=== PATIENT | female | born 1995 | race Caucasian/White ===

== ENCOUNTER 2018-10-25 10:01 | Emergency (ER) | payer OTHER ==
--- NOTE | 2018-10-25 10:16 | EDPHY ---
H & P Stated Complaint: L side dull low back pain sudden @847 s trauma. Tylenol@910 Time Seen by Provider: 10/25/18 10:16 - Personal History Current Tetanus/Diphtheria Vaccine: Yes - Medical/Surgical History Hx Asthma: No Hx Chronic Respiratory Disease: No Hx Diabetes: No Hx Cardiac Disease: No Hx Renal Disease: No Hx Cirrhosis: No Hx Alcoholism: No Hx HIV/AIDS: No Hx Splenectomy or Spleen Trauma: No Other PMH: none - Social History Smoking Status: Never smoked Constitutional: Initial Vital Signs Heart Rate 78 10/25/18 10:10 Respiratory Rate 24 H 10/25/18 10:10 Blood Pressure 102/63 10/25/18 10:10 O2 Sat (%) 100 10/25/18 10:10 O2 Delivery Mode Room Air Allergies/Adverse Reactions: No Known Allergies Allergy (Unverified 10/25/18 10:10) Medical Decision Making ED Course/Re-evaluation: CHIEF COMPLAINT: HISTORY OF PRESENT ILLNESS: must have 4 elements: Location, Quality, Severity , Duration, Timing, Context, Modifying Factors, Associated Signs and Symptoms REVIEW OF SYSTEMS: A comprehensive 10 system review of systems is otherwise negative aside from elements mentioned in the history of present illness and medical decision making. PHYSICAL EXAM: HR, BP, O2 Sat, RR. Temp noted General Appearance: Alert, well hydrated, appropriate, and non-toxic appearing. Head: Atraumatic without scalp tenderness or obvious injury Eyes: Pupils equal, round, reactive to light and accommodation, EOMI, no trauma , no injection. Ears: Clear bilaterally, no perforation, normal landmarks Nose: Atraumatic, no rhinorrhea, clear. Throat: There is no erythema or exudates, no lesions, normal tonsils, mucus membranes moist. Neck: Supple, 2+ carotid upstroke, nontender, no lymphadenopathy. Respiratory: No retractions, no distress, no wheezes, and no accessory muscle use. Lungs are clear to auscultation bilaterally. Cardiovascular: Regular rate and rhythm, no murmurs, rubs, or gallops. Bilateral carotid, radial, dorsalis pedis, and posterior tibial pulses intact. Good capillary refill all extremities. Gastrointestinal: Abdomen is soft, nontender, non-distended, no masses, no rebound, no guarding, no peritoneal signs. Musculoskeletal: Normal active ROM of all extremities, atraumatic. Neurological: Alert, appropriate, and interactive. The patient has normal DTRs and non-focal cranial nerves, motor, sensory, and cerebellar exam. Skin: No rashes, good turgor, no nodules on palpation. Past medical history: Past surgical history: Family history: Social history: DIAGNOSTICS/PROCEDURES/CRITICAL CARE TIME: DIFFERENTIAL DIAGNOSIS: MEDICAL DECISION MAKING: Departure - Departure Condition: Fair
[2018-10-25] MEDS ORDERED: NS 1,000 ML IV ONE ×2 (10:21→13:00)
[2018-10-25] MEDS ORDERED: ONDANSETRON 4 MG/2 ML VIAL IVP ONE ×2 (10:21→13:00)
[2018-10-25] MEDS ORDERED: fentaNYL 100 MCG/2 ML INJ IVP ONE (10:21)
[2018-10-25] MEDS ORDERED: KETOROLAC 15 MG/1 ML SDV IVP ONE (10:21)
[2018-10-25] MEDS ORDERED: DIAZEPAM 5 MG TAB PO ONE ×2 (10:21→13:01)
--- NOTE | 2018-10-25 10:27 | EDPHY ---
General Time Seen by Provider: 10/25/18 10:16 Narrative: CLINICAL IMPRESSION: Left ureterolithiasis ASSESSMENT/PLAN: 22-year-old female presents to the emergency department with sudden onset left flank pain this morning associated with nausea and vomiting. No associated dysuria or gross hematuria, personal history of kidney stones or chronic urinary tract infections although there is a strong family history of kidney stones. Patient was very uncomfortable on arrival and required repeat doses of IV analgesics for pain control. Urine shows microscopic hematuria with no pyuria or bacteriuria. CT confirms a 4 mm distal ureteral stone with associated mild left hydro. No other acute findings identified. Patient does not appear to have infected urine. Creatinine mildly elevated at 1.1 with a BUN of 30 likely due to dehydration. She was given IV fluids and was able to tolerate oral analgesics with good pain control. She will be discharged with Flomax, Toradol, Valium, Percocet as well a Urology referral for follow-up. Warning signs return to ED sooner outlined and discharge. DIFFERENTIAL DX: Abdominal pain includes but not limited to urinary tract infection, ureterolithiasis, nephrolithiasis pyelonephritis, infection, ectopic , salpingitis, TOA, ovarian torsion, ovarian cyst, endometriosis, uterine fibroids, acute appendicitis, acute diverticulitis, small-bowel obstruction, constipation ED PROCEDURES: See lab and/or imaging results below ED COURSE: Patient seen by myself. Appears very uncomfortable. Kneeling on the floor vomiting in an emesis basin. Plan for IV, fluid bolus, analgesics, possible CT , urine studies 12:00pm: Patient reassessed. Was feeling better, now uncomfortable again. Hematuria noted on UA. Given persistent pain will CT. No e/o UTI. 12:50 p.m.: CT discussed with Dr. Anglin. Patient has a distal 4 mm ureterolithiasis associated with mild hydronephrosis. 1:15: PM patient reassessed. Still with mild pain but better. CT results discussed. Will plan to try oral analgesics with plan to DC home. patient motivated to go home. CHIEF COMPLAINT: Sudden onset left flank pain HPI: 22-year-old otherwise healthy female presents to the emergency department with sudden onset left flank pain beginning this morning. Patient was in her usual state of health yesterday and today before symptoms began. She has never had pain like this before. She is nauseous and vomiting. She had a lot of alcohol to drink last night. She has not had anything to eat or drink this morning. No reported fever or chills. No urinary symptoms. Patient denies . She reports no radiating pain into the abdomen or into the legs. She personally has not had kidney stones but reports a strong family history of this. She took Tylenol this morning. PAST MEDICAL HISTORY: None reported See nurse/triage notes for additional history if applicable Pertinent Past Surgical History: None reported Family History: Family history of kidney stones Social History: Otherwise healthy, student REVIEW OF SYSTEMS: All other systems negative Constitutional: No fever, no chills, positive for appetite change. Cardiovascular: No chest pain, no palpitations. Respiratory: No cough, no shortness of breath. Gastrointestinal: No abdominal pain, positive for vomiting, denies diarrhea. Genitourinary: No hematuria, dysuria, positive for sudden onset left flank pain , pelvic pain Musculoskeletal: Positive for left-sided back pain, joint swelling, joint pain , myalgias. Skin: No rashes, color change. Neurological: No headache, dizziness, weakness. PHYSICAL EXAM: General Appearance: Alert, oriented, appropriate, cooperative, appears uncomfortable, kneeling on the floor, vomiting in an emesis basin, colicky appearing discomfort, VSS tachypnea, no hypoxia. Respiratory: There are no retractions, lungs are clear to auscultation. Cardiac: Regular rate and rhythm, no murmurs or gallops. Gastrointestinal: Abdomen is soft, nontender, bowel sounds normal, no masses/ hernia, no rigidity, guarding or focal peritoneal findings. No reproducible flank or back pain. Neurological: [ Alert and oriented x 3, CN 2-12 grossly intact Skin: Warm, dry, no rashes, no nodules on palpation. Musculoskeletal: Extremities are symmetrical, full range of motion, no tenderness, deformity, swelling, or erythema. MEDICAL DECISION MAKING: Patient was seen independently. Secondary supervising physician at time of evaluation was Dr. Perez . Diagnosis: Left Ureterolithiasis. New, requires workup Summary: See Assessment and Plan for summary of ED visit Clinical lab tests: ordered / reviewed. Independent visualization of images, tracing, or specimens: Yes / No. Discussed patient with another provider: Dr Anglin Patient Progress: Improved, stable for discharge. - Diagnostics Imaging Results: Imaging Impressions Abdomen/Pelvis CT 10/25/18 11:40 Impression: 1. 4-mm distal left ureteral stone with mild obstructive uropathy with probable forniceal rupture. 2. Additional findings as above. Findings discussed with Edvin Engle PA-C on October 25, 2018 at 1249 hours. Attention: This CT examination is specifically designed to evaluate patients who are clinically suspected of having acute obstructive uropathy. This examination does not use radiographic contrast and provides only a limited evaluation of the abdomen, pelvis and retroperitoneum. If there is further clinical suspicion for pathological conditions other than obstructive uropathy, a complete CT evaluation of the abdomen and pelvis utilizing intravenous and enteric contrast should be considered. - History Smoking Status: Never smoked - Objective Vital Signs: Initial Vital Signs Heart Rate 78 10/25/18 10:10 Respiratory Rate 24 H 10/25/18 10:10 Blood Pressure 102/63 10/25/18 10:10 O2 Sat (%) 100 10/25/18 10:10 O2 Delivery Mode Room Air Allergies/Adverse Reactions: No Known Allergies Allergy (Unverified 10/25/18 10:10) Home Medications: Medication Instructions Recorded Diazepam [Valium] 5 mg PO Q8PRN PRN #10 tab 10/25/18 Ketorolac Tromethamine [Toradol 1 tab PO BID #10 tab 10/25/18 10mg tab] Tamsulosin HCl [Flomax 0.4 MG (RX)] 0.4 mg PO DAILY #7 cap 10/25/18 oxyCODONE/APAP 5/325 [Percocet 1 - 2 tab PO Q4-6PRN PRN #12 tab 10/25/18 5/325] Laboratory Results: Laboratory Results 10/25/18 10:28 10/25/18 10:28 10/25/18 10/25/18 10/25/18 11:25 11:25 10:28 WBC RBC Hgb Hct MCV MCH MCHC RDW Plt Count MPV Neut % (Auto) Lymph % (Auto) [place] % (Auto) Eos % (Auto) Baso % (Auto) Nucleat RBC Rel Count Absolute Neuts (auto) Absolute Lymphs (auto) Absolute Monos (auto) Absolute Eos (auto) Absolute Basos (auto) Absolute Nucleated RBC Immature Gran % Immature Gran # Sodium 140 mEq/L mEq/L (135-145) Potassium 3.9 mEq/L mEq/L (3.5-5.2) Chloride 105 mEq/L mEq/L (97-110) Carbon Dioxide 21 mEq/l L mEq/l (22-31) Anion Gap 14 mEq/L mEq/L (6-14) BUN 16 mg/dL mg/dL (7-23) Creatinine 1.1 mg/dL H mg/dL (0.6-1.0) Estimated GFR > 60 Glucose 134 mg/dL H mg/dL (70-100) Calcium 9.9 mg/dL mg/dL (8.5-10.4) Urine Color YELLOW Urine Appearance HAZY Urine pH 6.0 (5.0-7.5) Ur Specific [place] 1.029 (1.002-1.030) Urine Protein 1+ H (NEGATIVE) Urine Ketones 2+ H (NEGATIVE) Urine Blood 3+ H (NEGATIVE) Urine Nitrate NEGATIVE (NEGATIVE) Urine Bilirubin NEGATIVE (NEGATIVE) Urine Urobilinogen NEGATIVE EU EU (0.2-1.0) Ur Leukocyte Esterase NEGATIVE (NEGATIVE) Urine RBC 50-182 /hpf H /hpf (0-3) Urine WBC 10-15 /hpf H /hpf (0-3) Ur Epithelial Cells TRACE /lpf /lpf (NONE-1+) Urine Mucus 2+ /lpf H /lpf (NONE-1+) Urine Glucose NEGATIVE (NEGATIVE) Urine Test NEGATIVE 10/25/18 10:28 WBC 10.07 10^3/uL H 10^3/uL (3.80-9.50) RBC 5.10 10^6/uL 10^6/uL (4.18-5.33) Hgb 15.5 g/dL g/dL (12.6-16.3) Hct 46.6 % % (38.0-47.0) MCV 91.4 fL fL (81.5-99.8) MCH 30.4 pg pg (27.9-34.1) MCHC 33.3 g/dL g/dL (32.4-36.7) RDW 13.5 % % (11.5-15.2) Plt Count 251 10^3/uL 10^3/uL (150-400) MPV 11.1 fL fL (8.7-11.7) Neut % (Auto) 72.8 % % (39.3-74.2) Lymph % (Auto) 18.3 % % (15.0-45.0) [place] % (Auto) 7.2 % % (4.5-13.0) Eos % (Auto) 0.5 % L % (0.6-7.6) Baso % (Auto) 0.4 % % (0.3-1.7) Nucleat RBC Rel Count 0.2 % % (0.0-0.2) Absolute Neuts (auto) 7.33 10^3/uL H 10^3/uL (1.70-6.50) Absolute Lymphs (auto) 1.84 10^3/uL 10^3/uL (1.00-3.00) Absolute Monos (auto) 0.73 10^3/uL 10^3/uL (0.30-0.80) Absolute Eos (auto) 0.05 10^3/uL 10^3/uL (0.03-0.40) Absolute Basos (auto) 0.04 10^3/uL 10^3/uL (0.02-0.10) Absolute Nucleated RBC 0.02 10^3/uL H 10^3/uL (0-0.01) Immature Gran % 0.8 % % (0.0-1.1) Immature Gran # 0.08 10^3/uL 10^3/uL (0.00-0.10) Sodium Potassium Chloride Carbon Dioxide Anion Gap BUN Creatinine Estimated GFR Glucose Calcium Urine Color Urine Appearance Urine pH Ur Specific [place] Urine Protein Urine Ketones Urine Blood Urine Nitrate Urine Bilirubin Urine Urobilinogen Ur Leukocyte Esterase Urine RBC Urine WBC Ur Epithelial Cells Urine Mucus Urine Glucose Urine Test Medications Given: Discontinued Medications Diazepam (Valium) 2.5 mg PO EDNOW ONE Stop: 10/25/18 10:22 Last Admin: 10/25/18 10:55 Dose: 2.5 mg Diazepam (Valium) 2.5 mg PO EDNOW ONE Stop: 10/25/18 13:02 Last Admin: 10/25/18 13:21 Dose: 2.5 mg Fentanyl (Sublimaze) 50 mcg IVP EDNOW ONE Stop: 10/25/18 10:22 Last Admin: 10/25/18 10:33 Dose: 50 mcg Hydromorphone HCl (Dilaudid) 0.5 mg IVP EDNOW ONE Stop: 10/25/18 11:40 Last Admin: 10/25/18 11:45 Dose: 0.5 mg Hydromorphone HCl (Dilaudid) 0.5 mg IVP EDNOW ONE Stop: 10/25/18 12:29 Last Admin: 10/25/18 12:41 Dose: 0.5 mg Sodium Chloride (Ns) 1,000 mls @ 0 mls/hr IV EDNOW ONE; Wide Open PRN Reason: Protocol Stop: 10/25/18 10:22 Last Admin: 10/25/18 10:39 Dose: 1,000 mls Sodium Chloride (Ns) 1,000 mls @ 0 mls/hr IV EDNOW ONE; Wide Open PRN Reason: Protocol Stop: 10/25/18 13:01 Last Admin: 10/25/18 13:23 Dose: 1,000 mls Ketorolac Tromethamine (Toradol) 15 mg IVP EDNOW ONE Stop: 10/25/18 10:22 Last Admin: 10/25/18 10:37 Dose: 15 mg Ondansetron HCl (Zofran) 4 mg IVP EDNOW ONE Stop: 10/25/18 10:22 Last Admin: 10/25/18 10:35 Dose: 4 mg Ondansetron HCl (Zofran) 4 mg IVP EDNOW ONE Stop: 10/25/18 13:01 Last Admin: 10/25/18 13:24 Dose: 4 mg Oxycodone/Acetaminophen (Percocet 5/325) 2 tab PO EDNOW ONE Stop: 10/25/18 13:02 Last Admin: 10/25/18 13:27 Dose: 2 tab Departure - Departure Disposition: Home, Routine, Self-Care Clinical Impression: Ureterolithiasis Condition: Good Instructions: Ureteral Stones (ED) Additional Instructions: DISCHARGE INSTRUCTIONS FROM YOUR DOCTOR Thank you for visiting our emergency department today. You were treated by a physician multimedia assistant today and your case was reviewed with our ED Attending physician. Please keep in mind that discharge from the emergency department does not mean that there is nothing wrong - it simply means that we have not identified an emergency condition that requires further evaluation or treatment in the hospital. You should always plan to follow up with primary care for re- evaluation of your condition in the next 2-3 days. If you have been referred to a specialist, please call as soon as possible (today or tomorrow) to schedule your follow up appointment at the appropriate time. DIAGNOSTIC EVALUATION IN THE ER INCLUDED LABS, URINE STUDIES AND CT SCAN. YOU DID HAVE BLOOD IN YOUR URINE BUT NO SIGNS OF INFECTION. CT SHOWS A 4MM LEFT DISTAL URETERAL STONE. YOU SHOULD PASS THIS ON YOUR OWN. PLEASE STAY WELL HYDRATED. TAKE PAIN MEDS AND FLOMAX INDICATED. DO NOT DRIVE OR DRINK ALCOHOL WHILE TAKING NARCOTIC PAIN MEDICATION. PLEASE BE AWARE, NARCOTICS CAN CAUSE CONSTIPATION, LETHARGY, AND INCREASE YOUR RISK OF FALLING. DO NOT TAKE TYLENOL AT THE SAME TIME VICODIN OR PERCOCET. STRAIN YOUR URINE. PLEASE FOLLOWUP WITH UROLOGY, A REFERRAL WAS GIVEN. RETURN TO THE ER FOR WORSENING PAIN, INABILITY TO URINATE, FEVER GREATER THAN 100.4, CHILLS, PERSISTENT VOMITING, UNCONTROLLED PAIN OR ANY OTHER CONCERNS. People present with illnesses and injuries in different ways, and it is always possible that we have missed something. You may always return for re-evaluation if symptoms worsen or if they are not improving or if you develop new/different symptoms. Again, thank you for choosing our emergency department. We hope that you feel better. Referrals: NONE *PRIMARY CARE P,. [Primary Care Provider] - As per Instructions Dayo Hill MD [Medical Doctor] - As per Instructions Prescriptions: Diazepam [Valium] 5 mg PO Q8PRN PRN #10 tab PRN Reason: Pain, Breakthrough Ketorolac Tromethamine [Toradol 10mg tab] 1 tab PO BID #10 tab oxyCODONE/APAP 5/325 [Percocet 5/325] 1 - 2 tab PO Q4-6PRN PRN #12 tab PRN Reason: Pain, Breakthrough Tamsulosin HCl [Flomax 0.4 MG (RX)] 0.4 mg PO DAILY #7 cap
[2018-10-25 10:41] LABS: PLATELET COUNT 251 10^3/uL (150-400)
[2018-10-25] MEDS ORDERED: HYDROmorphONE/DILAUDID 2 MG/ML INJ IVP ONE ×2 (11:39→12:28)
[2018-10-25] MEDS ORDERED: OXYCODONE/APAP 5/325 TAB PO ONE (13:01)
[2018-10-25 14:56] VITALS: BP 112/75
== END 2018-10-25 14:55 | disposition home or self-care (01) ==
DX: N20.1 Calculus of ureter (principal); R10.32 Left lower quadrant pain; E86.9 Volume depletion, unspecified
CPT/HCPCS: 96374; J1170; J1885; J2405; J3010